=== PATIENT | female | born 1960 | race Hispanic/Latino ===

== ENCOUNTER 2022-01-22 07:59 | Day surgery (SDC) | payer OTHER, MEDICARE ==
[2022-01-19 10:37] LABS: BASOPHILS % (AUTO) 0.4 % (0.0-5.0); EOSINOPHILS % (AUTO) 2.2 % (0.0-8.0); HEMATOCRIT 41.8 % (36-48); LYMPHOCYTES % (AUTO) 25.8 % (21.0-51.0); MEAN CORPUSCULAR HEMOGLOBIN 28.1 pg (27.0-33.0); MEAN CORPUSCULAR HGB CONC 31.6 g/dL (32.0-36.0); MEAN CORPUSCULAR VOLUME 89.1 fL (79-99); MONOCYTES % (AUTO) 6.9 % (3.0-13.0); NEUTROPHILS % (AUTO) 64.2 % (40.0-77.0); PLATELET COUNT (AUTO) 263 K/uL (130-400); RED BLOOD CELL COUNT(AUTO) 4.69 MIL/uL (4.00-5.50); RED CELL DISTRIBUTION WIDTH 14.4 % (11.0-15.5); WHITE BLOOD COUNT (AUTO) 7.4 K/uL (4.8-10.8)
[2022-01-19 10:46] LABS: POTASSIUM 3.7 mmol/L (3.5-5.1)
[2022-01-21 08:57] VITALS: BP 142/83
[~2022-01-22] VITALS: Ht 162.6 cm; Wt 81.6 kg
[2022-01-22] VITALS (12 sets, daily range): BP systolic 123–161; BP diastolic 68–83
[~2022-01-22 07:59] MED LIST: 0.9% NACL 500ML IV.SOLN 500 ML IV SCH; ALBU8.5H8 IH; ESOMEPRAZOLE PO; FLUT1BLS IH; FLUTICASONE NASAL; GABA-531 PO; INSU100I21 SQ; KETOROLAC OD; LISI20TA24 PO; OFLO35OS OD; PRED5DRO25 OD; ROSU40TA21 PO; VICTOZA SQ
[2022-01-22] MEDS: CEFAZOLIN SODIUM 1 GM VIAL IVP SCH ×2 (08:20→09:50)
[2022-01-22] MEDS ORDERED: MIDAZOLAM HCL 1 MG/ML 2ML VIAL ONE (08:27)
[2022-01-22] MEDS ORDERED: BUPIVACAINE/PF 0.5% 30ML VIAL ONE (08:27)
[2022-01-22] MEDS ORDERED: PROPOFOL 10 MG/ML 20ML VIAL IV ONE (08:28)
[2022-01-22] MEDS ORDERED: FENTANYL CITRATE PF 50 MCG/1 ML 2ML VIAL ONE ×2 (08:28→10:07)
[2022-01-22] MEDS ORDERED: ONDANSETRON 4MG INJ ONE (08:50)
[2022-01-22] MEDS ORDERED: LIDOCAINE HCL 1% 20 ML VIAL ONE (09:52)
[2022-01-22] MEDS ORDERED: ICOS1CAP PO (10:50)
[2022-01-22] MEDS ORDERED: TAMS-1 PO (10:50)
[2022-01-22] MEDS ORDERED: AMLO-257 PO (10:50)
[2022-01-22] MEDS ORDERED: OXYB10TA30 PO (10:50)
[2022-01-22] MEDS ORDERED: ESCI-8 PO (10:50)
[2022-01-22] MEDS ORDERED: MONT-39 PO (10:50)
== END 2022-01-22 11:41 | disposition home or self-care (01) ==
LOC: DAH 07:59
PROVIDERS: ATTEND Surgery
DX: D17.1 Benign lipomatous neoplasm of skin and subcutaneous tissue of trunk (principal); I10 Essential (primary) hypertension; K21.9 Gastro-esophageal reflux disease without esophagitis; G47.30 Sleep apnea, unspecified; E66.01 Morbid (severe) obesity due to excess calories; E11.9 Type 2 diabetes mellitus without complications; Z79.84 Long term (current) use of oral hypoglycemic drugs; Z79.899 Other long term (current) drug therapy; Z90.710 Acquired absence of both cervix and uterus; Z90.49 Acquired absence of other specified parts of digestive tract; Z98.890 Other specified postprocedural states; Z83.3 Family history of diabetes mellitus; Z82.49 Family history of ischemic heart disease and other diseases of the circulatory system; Z20.822 Contact with and (suspected) exposure to COVID-19; Z98.41 Cataract extraction status, right eye; Z98.42 Cataract extraction status, left eye; Z82.3 Family history of stroke; Z68.32 Body mass index [BMI] 32.0-32.9, adult
CPT/HCPCS: 21931; 36415; 80048; 82948 ×2; 85025; 87635; 88304; A4215; A4221; A4222; A4223; A4452; A4663; A6260; C9803; J0690; J2250; J2405; J2704; J3010 ×2; J3490; J7040